=== PATIENT | female | born 1970 | race African-American/Black ===

== ENCOUNTER 2018-05-23 14:24 | Emergency (ER) | payer SELFPAY ==
[~2018-05-23] VITALS: Ht 172.7 cm; Wt 65.3 kg
[2018-05-23 14:24] VITALS: BP 107/70
== END 2018-05-23 16:38 | disposition home or self-care (01) ==
LOC: ER 14:26
DX: N89.8 Other specified noninflammatory disorders of vagina (principal); Z88.6 Allergy status to analgesic agent; Z60.2 Problems related to living alone
CPT/HCPCS: A4606; Z7502; Z7610